=== PATIENT | male | born 1950 | race American Indian/Alaskan Native ===

== ENCOUNTER 2017-07-31 09:10 | Outpatient (CLI) | payer MEDICARE ==
[2017-07-31 09:55] LABS: Blood Urea Nitrogen 16 mg/dL (9-20)
--- NOTE | 2017-07-31 12:08 | Cat Scan Report ---
CT ABDOMEN PELVIS WITH CONTRAST: HISTORY: Left lower quadrant abdominal pain. COMPARISON: none. TECHNIQUE: Helical CT in 1.25mm intervals following IV contrast. Sagittal and coronal reconstructions. FINDINGS: Lung bases: Normal. Liver: Normal. Biliary system: Normal. Pancreas: Normal. Spleen: Normal. Kidneys/ureters/bladder: Multiple bilateral renal cysts are identified. The largest cyst in the right kidney measures 8 cm of the superior pole. The largest cyst in the left kidney measures 4 cm near mid pole. There is no evidence for mass, calculus or hydronephrosis. The ureters and bladder are unremarkable. Adrenal glands: Normal. Aorta: Normal. Intestines: Unremarkable given no oral contrast was administered. No evidence for focal inflammation or obstruction. Appendix: Normal. Pelvic viscera: Normal. Ascites: None. Adenopathy: None. Musculoskeletal: Degenerative changes in the lumbar spine. IMPRESSION: No acute process is identified in the abdomen or pelvis. No clear explanation for left lower quadrant pain. Multiple bilateral simple appearing renal cysts.
== END 2017-07-31 09:11 | disposition home or self-care (01) ==
LOC: SPVIMAG 09:10 → CT 09:11
PROVIDERS: ATTEND Internal Medicine Gastroenterology
DX: N28.1 Cyst of kidney, acquired (principal); M47.896 Other spondylosis, lumbar region; R63.5 Abnormal weight gain
CPT/HCPCS: 36415; 74177; 82565; 84520; Q9967